=== PATIENT | female | born 1995 | race Caucasian/White ===

== ENCOUNTER 2018-03-19 06:00 | Inpatient (IN) | payer OTHER ==
[2018-03-19] MEDS ORDERED: METHYLERGONOVINE 0.2 MG/ML 1 ML AMP IM PRN (06:07)
[2018-03-19] MEDS ORDERED: LIDOCAINE 0.5% (PF) 5 MG/ML (50 ML SDV) SQ PRN (06:07)
[2018-03-19] MEDS ORDERED: OXYTOCIN 10 UNIT/ML 1 ML VIAL IM PRN (06:07)
[2018-03-19] MEDS ORDERED: CARBOPROST TROMETHAMINE 250 MCG/ML 1 ML AMP IM PRN (06:07)
[2018-03-19] MEDS ORDERED: TERBUTALINE 1 MG/ML VIAL SQ PRN (06:07)
[2018-03-19 06:12] VITALS: BMI 39.8
[2018-03-19] MEDS ORDERED: LACTATED RINGERS 1,000 ML IV SCH (06:15)
[2018-03-19] MEDS ORDERED: OXYTOCIN 20 UNITS/1000 ML NS 1,000 ML IV SCH ×2 (06:15→19:00)
[2018-03-19] MEDS: LACTATED RINGERS 1,000 ML IV SCH ×3 (06:23→20:43)
[2018-03-19 06:38] LABS: Basophils % (A) 0 %; Eosinophils # (A) 0.1 k/uL (0-0.7); Eosinophils % (A) 1 %; HCT 36.1 % (34.0-46.0); HGB 11.4 gm/dL (11.4-16.0); Lymphocytes % (A) 17 %; MCH 28.2 pg (25.0-35.0); MCHC 31.6 g/dL (31.0-37.0); MCV 89.3 fL (80.0-100.0); Mean Platelet Volume 8.1; Monocytes # (A) 0.5 k/uL (0-1.0); Monocytes % (A) 4 %; Neutrophils # (A) 9.1 k/uL (1.3-7.7); Neutrophils % (A) 76 %; Platelet Count 280 k/uL (150-450); RBC 4.04 m/uL (3.80-5.40); RDW 15.9 % (11.5-15.5); WBC 11.9 k/uL (3.8-10.6)
[2018-03-19] MEDS ORDERED: BUTORPHANOL 1 MG/ML 1 ML VIAL IV PRN (08:16)
--- NOTE | 2018-03-19 08:16 | P.HPOB ---
History of Present Illness H&P Date: 03/19/18 Chief Complaint: IUP @ 39 6/7 weeks This is a very pleasant 23-year-old 1 para 0 at 39-6/7 weeks with an estimated due date of 6 based on last menstrual period. Patient has been receiving routine care with myself since 10 weeks of gestation. Patient had an ultrasound yesterday for size greater than dates and was noted to have an EFW of 8 lbs. 10 oz. with an RASHEEDA of 20. Cervix was noted to be favorable 2-3 cm/50/-3 station soft and anterior patient elected induction. On blood work patient had a blood type of A+, rubella nonimmune we'll plan immunization post delivery, RPR is nonreactive, hepatitis B surface antigen is negative, HIV is negative, she did pass her 1 hour GDS she also elected to have genetic screening done in the first trimester which was negative , group beta strep is negative. Review of Systems Constitutional: Denies chills, Denies fatigue, Denies fever Ears, nose, mouth and throat: Denies headache Cardiovascular: Reports leg edema Respiratory: Denies cough, Denies dyspnea Gastrointestinal: Denies constipation, Denies diarrhea, Denies nausea, Denies vomiting Genitourinary: Reports Past Medical History Past Medical History: No Reported History History of Any Multi-Drug Resistant Organisms: None Reported Past Surgical History: No Surgical Hx Reported Past Anesthesia/Blood Transfusion Reactions: No Reported Reaction Past Psychological History: No Psychological Hx Reported Smoking Status: Never smoker Past Alcohol Use History: None Reported Past Drug Use History: None Reported - Past Family History Father Family Medical History: No Reported History Medications and Allergies Home Medications Medication Instructions Recorded Confirmed Type Pnv No.95/Ferrous Fum/Folic AC 1 tab PO ONCE 03/19/18 03/19/18 History [ Multivitamin Tablet] Allergies Allergy/AdvReac Type Severity Reaction Status Date / Time No Known Allergies Allergy Verified 03/19/18 06:06 Exam Osteopathic Statement: *. No significant issues noted on an osteopathic structural exam other than those noted in the History and Physical/Consult. Vital Signs Temp Pulse Resp BP Pulse Ox 03/19/18 06:09 95.8 F L 94 16 131/82 99 Intake and Output 03/18/18 03/19/18 03/19/18 22:59 06:59 14:59 Other: Weight 105.233 kg Targeted physical exam was performed on this date in general this is a well- nourished well-developed female in no acute distress, heart has regular rate and rhythm, lungs were noted to be clear to auscultation bilaterally, abdomen is noted to be gravid and appropriate for gestational age, extremities 1+ edema, heart tones are noted to be reactive and she is maría every 3 minutes. On cervical exam her cervix was noted to be 3/50/- 2 amniotomy was performed and clear fluid was obtained without difficulty Results Result Diagrams: 03/19/18 06:20 Abnormal Lab Results - Last 24 Hours (Table) 03/19/18 Range/Units 06:20 WBC 11.9 H (3.8-10.6) k/uL RDW 15.9 H (11.5-15.5) % Neutrophils # 9.1 H (1.3-7.7) k/uL Assessment and Plan (1) Term Current Visit: Yes Status: Acute Code(s): Z34.80 - ENCOUNTER FOR SUPRVSN OF NORMAL , UNSP TRIMESTER SNOMED Code(s): 59676728 Plan: Plan Pitocin induction of labor, Stadol as needed for pain control versus epidural as patient request. Anticipate spontaneous vaginal delivery later this afternoon.
[2018-03-19] MEDS ORDERED: PRENATAL VIT-IRON-FOLIC ACID 1 EACH CAP PO ONE (08:30)
[2018-03-19] MEDS ORDERED: ROPIVACAINE 5MG/ML 20ML VIAL ONE (13:34)
[2018-03-19] MEDS ORDERED: fentaNYL (PF) 50 MCG/ML 5 ML AMP ONE (13:34)
[2018-03-19] MEDS ORDERED: SODIUM CHLORIDE 0.9% 100 ML BAG ONE (13:34)
[2018-03-19] MEDS ORDERED: LIDOCAINE 2% INJ 20 MG/ML (20 ML MDV) ONE (18:15)
[2018-03-19] MEDS ORDERED: OXYTOCIN 10 UNIT/ML 1 ML VIAL ONE (18:15)
[2018-03-19] MEDS ORDERED: fentaNYL (PF) 50 MCG/ML 2 ML AMP ONE (18:15)
[2018-03-19] MEDS ORDERED: MORPHINE SULFATE (PF) 0.3 MG/0.3 ML SYR ONE (18:15)
[2018-03-19] MEDS ORDERED: ceFAZolin IN SWFI 2 GM/20 ML SYRINGE IVP ONE (18:17)
[2018-03-19] MEDS ORDERED: CITRIC ACID-SODIUM CITRATE 15 ML CUP PO ONE (18:17)
[2018-03-19] MEDS ORDERED: NALOXONE 0.4 MG/ML 1 ML VIAL IV PRN ×2 (18:34→18:56)
[2018-03-19] MEDS ORDERED: diphenhydrAMINE 50 MG/ML 1 ML VIAL IVP PRN ×3 (18:34→18:56)
[2018-03-19] MEDS ORDERED: ZOLPIDEM 5 MG TAB PO PRN (18:56)
[2018-03-19] MEDS ORDERED: diphenhydrAMINE 50 MG CAP PO PRN (18:56)
[2018-03-19] MEDS ORDERED: diphenhydrAMINE 25 MG CAP PO PRN (18:56)
[2018-03-19] MEDS ORDERED: METOCLOPRAMIDE 5 MG/ML 2 ML VIAL IVP PRN (18:56)
[2018-03-19] MEDS ORDERED: ACETAMINOPHEN TAB 325 MG TAB PO PRN (18:56)
[2018-03-19] MEDS ORDERED: HYDROcodone/APAP 7.5-325MG 1 EACH TAB PO PRN (18:56)
[2018-03-19] MEDS ORDERED: MEASLES-MUMPS-RUBELLA VACC/PF 12,500 UNIT/0.5 ML VIAL SQ ONE (18:56)
[2018-03-19] MEDS ORDERED: ONDANSETRON 4 MG/2 ML VIAL IVP PRN (18:56)
[2018-03-19] MEDS ORDERED: ACETAMINOPHEN IV (For NPO) 1,000 MG in EMPTY BAG 1 BAG IVPB ONE (18:56)
[2018-03-19] MEDS ORDERED: IBUPROFEN IV 800 MG in SODIUM CHLORIDE 0.9% 250 ML IV ONE (18:58)
--- NOTE | 2018-03-19 19:03 | P.OP ---
Date of Procedure: 03/19/18 Preoperative Diagnosis: IUP at 39 and 6/7 weeks, suspected LGA, arrest of first stage of labor Postoperative Diagnosis: Same plus meconium-stained fluid Procedure(s) Performed: Primary low transverse section Anesthesia: epidural Surgeon: Tierney Devine Front Desk Auxiliary #1: Earnestine Tineo Estimated Blood Loss (ml): 600 IV fluids (ml): 800 Urine output (ml): 150 Pathology: other (Placenta) Condition: stable Disposition: PACU Indications for Procedure: Patient was noted to be 6 cm for greater than 4 hours with no further descent of the head Operative Findings: Meconium-stained fluid, uterus, placenta, normal uterus tubes and ovaries were appreciated Description of Procedure: The patient was prepped and draped in the usual fashion after epidural anesthesia was found to be adequate. A Pfannenstiel incision was made and extended of the abdominal cavity without difficulty. The bladder peritoneum was elevated and incised and reflected distally. A 2 cm incision was made in the transverse plane of the lower uterine segment to enter the uterus at which time meconium stained fluid was noted. The incision was extended in both directions using the bandage scissors. The head was encountered within the field and delivered up and through the incision where the nose and mouth were thoroughly suctioned. Remainder of the infant was delivered onto the surgical field where the cord was doubly clamped, cut, and the was passed for resuscitative measures with weight 8-13 and Apgars of 8-9 at 1 and 5 minutes respectively. The placenta was delivered manually, intact, and was grossly normal with a grossly normal three-vessel cord. The uterus was exteriorized and the interior cavity of the uterus swept of any remaining placental and membranous fragments with a laparotomy sponge. The margins of the incision were grasped with [place] clamps and the incision closed in 2 layers. First layer was a running locking layer of 0 vicryl from margin to margin followed by a second layer of imbricating 0 vicryl from margin to margin. Any small points of bleeding were then made hemostatic with the Bovie. Once hemostasis was achieved, the posterior cul-de-sac was suctioned with a guard and the uterine and ovarian findings are as noted above. The uterus was replaced within the abdominal cavity and the gutters swept of any remaining blood fluid or clot. The incision was again reexamined and hemostasis was noted to be excellent. Any small point of bleeding were made hemostatic with the Bovie. Once hemostasis was achieved the parietal peritoneum was loosely reapproximated. The layer of muscles were examined and made hemostatic with the Bovie. Attention was then turned to the fascia which was closed with 2 running stitches of 0 Vicryl proceeding from the lateral margins to the midpoint. The subcutaneous tissues were irrigated, made hemostatic with the Bovie, and reapproximated with a running stitch of 3-0 vicryl. The skin was reapproximated with 4-0 vicryl. Estimated blood loss for the case was approximately 600 mL. All sponge instrument and needle counts are correct. There were no complications. The patient tolerated the procedure well and proceeded to the recovery room in stable condition. Both mother and infant are resting comfortably in recovery.
[2018-03-20] MEDS: SENNOSIDES-DOCUSATE SODIUM 1 EACH TAB PO SCH ×3 (01:56→22:32)
[2018-03-20] MEDS: LACTATED RINGERS 1,000 ML IV SCH ×4 (01:56→22:31)
--- NOTE | 2018-03-20 05:49 | P.PN ---
Progress Note - Text Progress Note Date: 03/20/18 23 yo F status post . Post-op day #1. Patient received intrathecal Duramorph through epidural catheter. Patient was seen today, sitting up in bed no complaints, pain VAS score 2/10, no headache, no itching, no nausea and vomiting. Assessment and plan: Doing well in general no complications from anesthesia
[2018-03-20 08:18] LABS: Basophils % (A) 0 %; Eosinophils # (A) 0.1 k/uL (0-0.7); Eosinophils % (A) 1 %; Hypochromasia Slight; Lymphocytes # (A) 1.5 k/uL (1.0-4.8); Lymphocytes % (A) 14 %; MCH 28.8 pg (25.0-35.0); MCV 90.1 fL (80.0-100.0); Mean Platelet Volume 8.2; Monocytes # (A) 0.5 k/uL (0-1.0); Monocytes % (A) 5 %; Neutrophils # (A) 8.3 k/uL (1.3-7.7); Neutrophils % (A) 79 %; Platelet Count 205 k/uL (150-450); RBC 3.33 m/uL (3.80-5.40); RDW 15.9 % (11.5-15.5); WBC 10.5 k/uL (3.8-10.6)
[2018-03-20 08:23] LABS: HGB 9.6 gm/dL (11.4-16.0)
--- NOTE | 2018-03-20 08:27 | P.PNOBGPC ---
Subjective - Subjective Principal diagnosis: POD 1 LTCS arrest of labor Interval history: Pt did well overnight, pain is controlled. she is bottlefeeding. she has had a spontaneous void since berg was d/c. she notes lochia to be minimal. she is tolerating clear liquids wihtout n/v. she denies concerns Patient reports: Reports appetite normal, Reports voiding normally, Reports pain well controlled, Reports ambulating normally : doing well, bottle feeding Objective - Vital Signs Latest vital signs: Vital Signs Temp Pulse Resp BP BP Pulse Ox 03/20/18 07:49 98.1 F 97 14 133/82 03/20/18 05:00 15 97 03/20/18 04:00 98 F 81 15 124/75 03/20/18 03:00 15 98 03/20/18 01:00 16 03/20/18 00:00 98.1 F 92 15 138/91 03/19/18 23:00 15 98 03/19/18 21:34 16 03/19/18 21:00 96.8 F L 96 18 119/69 97 03/19/18 20:30 97.4 F L 110 H 18 121/79 97 03/19/18 20:00 96 18 126/57 97 03/19/18 19:45 82 18 132/77 97 03/19/18 19:35 18 98 03/19/18 19:30 98.3 F 84 16 127/72 97 03/19/18 19:15 89 18 124/69 98 03/19/18 19:00 98.4 F 86 18 118/68 97 Intake and Output 03/19/18 03/20/18 03/20/18 22:59 06:59 14:59 Intake Total 400 600 Output Total 100 350 300 Balance 300 -350 300 Intake: Intake, IV Titration 400 Amount ACETAMINOPHEN IV (For NPO 400 ) 1,000 mg In Empty Bag 1 bag @ 400 mls/hr IVPB ONCE ONE Rx#:[id number] Lipid 600 Lactated Ringers 1,000 ml 600 @ 125 mls/hr IV .Q8H [facility] Rx#:[id number] Output: Urine 100 350 300 Uretheral ([place]) 350 Other: Voiding Method Indwelling Catheter # Voids 1 - Exam Extremities: Present: normal Abdomen: Present: normal appearance, soft Incision: Present: normal, dry, intact Uterus: Present: normal, firm - Labs Labs: Abnormal Lab Results - Last 24 Hours (Table) 03/20/18 Range/Units 08:02 RBC 3.33 L (3.80-5.40) m/uL Hgb 9.6 L D (11.4-16.0) gm/dL Hct 30.0 L (34.0-46.0) % RDW 15.9 H (11.5-15.5) % Neutrophils # 8.3 H (1.3-7.7) k/uL Assessment and Plan (1) Term Current Visit: Yes Status: Acute Code(s): Z34.80 - ENCOUNTER FOR SUPRVSN OF NORMAL , UNSP TRIMESTER SNOMED Code(s): 77988942 (2) LGA (large for gestational age) fetus Current Visit: Yes Status: Acute Code(s): VSD2747 - SNOMED Code(s): 578854879 (3) S/P section Current Visit: Yes Status: Acute Code(s): Z98.891 - HISTORY OF UTERINE SCAR FROM PREVIOUS SURGERY SNOMED Code(s): 259770348 Plan: will continue routine post operative care, and anticipate d/c home of she does well today
[2018-03-20] MEDS: IBUPROFEN 600 MG TAB PO PRN ×3 (10:58→23:35)
[2018-03-21] MEDS: HYDROcodone/APAP 5-325MG 1 EACH TAB PO PRN ×2 (02:39→10:37)
[2018-03-21] MEDS: LACTATED RINGERS 1,000 ML IV SCH (06:16)
[2018-03-21] MEDS: IBUPROFEN 600 MG TAB PO PRN (07:41)
[2018-03-21] MEDS: SENNOSIDES-DOCUSATE SODIUM 1 EACH TAB PO SCH (07:41)
[2018-03-21 08:55] VITALS: BP 117/71; PULSE 92; RESP 18; TEMP 97.8
--- NOTE | 2018-03-21 09:22 | P.DS ---
Providers Date of admission: 03/19/18 06:04 Expected date of discharge: 03/21/18 Attending physician: Tierney Devine Primary care physician: Stated None - Discharge Diagnosis(es) (1) Term Current Visit: Yes Status: Acute (2) LGA (large for gestational age) fetus Current Visit: Yes Status: Acute (3) S/P section Current Visit: Yes Status: Acute Hospital Course: This is a 23-year-old 1 para 0 at 39 6 when she presented to labor and delivery for induction of labor for suspected LGA. Patient was admitted to labor and delivery and was noted to be 3 cm dilated she was maría regularly is Pitocin has been started 2 hours prior to me evaluating the patient. Patient underwent amniotomy and clear fluid was obtained. Patient progressed throughout labor and eventually became uncomfortable requesting an epidural. Anesthesia came in place at epidural without difficulty and she was comfortable afterwards. Just after the epidural around 12:30 1:00 patient was noted to be 5-6 cm patient stalled at that dilation and around 6:00 was checked and felt to be the same dilation. Patient was then counseled as to primary low transverse section secondary to arrest of first stage of labor. Patient agreed and was performed. For further details on the C- section please see the operative report. Patient delivered a viable female infant at 1831, weight of 8 lbs. 13 oz. and Apgars of 8 and 9 at one and 5 minutes respectively. Patient's postoperative course has been uneventful. She is ambulating and voiding without difficulty. She is tolerating a regular diet without nausea or vomiting. She states her pain is controlled with oral medications.. She is bottle feeding at this time. She is tired but states she is ready to go home on this postop day #2. Patient Condition at Discharge: Good Plan - Discharge Summary New Discharge Prescriptions: No Action Pnv No.95/Ferrous Fum/Folic AC [ Multivitamin Tablet] 1 tab PO ONCE Discharge Medication List Pnv No.95/Ferrous Fum/Folic AC [ Multivitamin Tablet] 1 tab PO ONCE 08/30 [History] Follow up Appointment(s)/Referral(s): Tierney Devine DO [Doctor of Osteopathic Medicine] - 2 Weeks Patient Instructions/Handouts: (DC), (GEN)
== END 2018-03-21 14:30 | disposition home or self-care (01) | DRG 788 ==
LOC: 4FBP 06:04
PROVIDERS: ADMIT Obstetrics & Gynecology Obstetrics; ATTEND Obstetrics & Gynecology Obstetrics
PROC: 00HU33Z Insertion of Infusion Device into Spinal Canal, Percutaneous Approach (ICD-10-PCS; 2018-03-19)
PROC: 3E0R3BZ Introduction of Anesthetic Agent into Spinal Canal, Percutaneous Approach (ICD-10-PCS; 2018-03-19)
PROC: 3E0134Z Introduction of Serum, Toxoid and Vaccine into Subcutaneous Tissue, Percutaneous Approach (ICD-10-PCS; 2018-03-19)
PROC: 10D00Z1 Extraction of Products of Conception, Low, Open Approach (ICD-10-PCS; principal; 2018-03-19 06:00)
DX: O36.63X0 Maternal care for excessive fetal growth, third trimester, not applicable or unspecified (principal); O77.0 Labor and delivery complicated by meconium in amniotic fluid; Z3A.39 39 weeks gestation of pregnancy; Z37.0 Single live birth; Z23 Encounter for immunization; Z79.899 Other long term (current) drug therapy
CPT/HCPCS: 85025; 86850; 86900; 86901; 88307; 90471; 90707

== ENCOUNTER 2019-11-26 10:10 | Inpatient (IN) | payer OTHER ==
[2019-11-25 14:57] VITALS: BMI 43.7
[~2019-11-26 10:10] MED LIST: LACTATED RINGERS 1,000 ML IV SCH; NALOXONE 0.4 MG/ML 1 ML VIAL IV PRN
[2019-11-26] MEDS ORDERED: CITRIC ACID-SODIUM CITRATE 15 ML CUP PO ONE (10:27)
[2019-11-26] MEDS ORDERED: LACTATED RINGERS 1,000 ML IV ONE (10:27)
[2019-11-26 10:50] LABS: Basophils % (A) 0 %; Eosinophils # (A) 0.1 k/uL (0-0.7); Eosinophils % (A) 1 %; HCT 35.4 % (34.0-46.0); HGB 11.2 gm/dL (11.4-16.0); Lymphocytes # (A) 1.6 k/uL (1.0-4.8); Lymphocytes % (A) 18 %; MCH 27.6 pg (25.0-35.0); MCHC 31.7 g/dL (31.0-37.0); MCV 87.1 fL (80.0-100.0); Mean Platelet Volume 9.2; Monocytes # (A) 0.3 k/uL (0-1.0); Monocytes % (A) 4 %; Neutrophils # (A) 6.6 k/uL (1.3-7.7); Neutrophils % (A) 75 %; Platelet Count 242 k/uL (150-450); RBC 4.07 m/uL (3.80-5.40); RDW 15.3 % (11.5-15.5); WBC 8.8 k/uL (3.8-10.6)
[2019-11-26] MEDS ORDERED: NALBUPHINE 10 MG/ML (1 ML AMP) ONE (12:05)
[2019-11-26] MEDS ORDERED: MORPHINE SULFATE (PF) 0.3 MG/0.3 ML SYR ONE (12:05)
[2019-11-26] MEDS ORDERED: ePHEDrine SULFATE/0.9% NACL/PF 50 MG/5 ML SYRINGE IV ONE (12:05)
[2019-11-26] MEDS ORDERED: PHENYLEPHRINE-0.9% NACL SYG 1 MG/10 ML SYRINGE ONE (12:05)
[2019-11-26] MEDS ORDERED: ONDANSETRON 4 MG/2 ML VIAL ONE (12:05)
[2019-11-26] MEDS ORDERED: OXYTOCIN 10 UNIT/ML 1 ML VIAL ONE (12:05)
[2019-11-26] MEDS ORDERED: NALOXONE 0.4 MG/ML 1 ML VIAL IV PRN (12:55)
[2019-11-26] MEDS ORDERED: diphenhydrAMINE 50 MG/ML 1 ML VIAL IVP PRN ×2 (12:55)
[2019-11-26] MEDS ORDERED: ACETAMINOPHEN TAB 325 MG TAB PO PRN (12:55)
[2019-11-26] MEDS ORDERED: ZOLPIDEM 5 MG TAB PO PRN (12:55)
[2019-11-26] MEDS ORDERED: diphenhydrAMINE 25 MG CAP PO PRN (12:55)
[2019-11-26] MEDS ORDERED: METOCLOPRAMIDE 5 MG/ML 2 ML VIAL IVP PRN (12:55)
[2019-11-26] MEDS ORDERED: ONDANSETRON 4 MG/2 ML VIAL IVP PRN (12:55)
[2019-11-26] MEDS ORDERED: ACETAMINOPHEN IV (For NPO) 1,000 MG in EMPTY BAG 1 BAG IVPB ONE (12:55)
[2019-11-26] MEDS ORDERED: SIMETHICONE 80 MG CHEWABLE PO PRN (12:55)
[2019-11-26] MEDS ORDERED: diphenhydrAMINE 50 MG CAP PO PRN (12:55)
[2019-11-26] MEDS ORDERED: OXYTOCIN 20 UNITS/1000 ML NS 1,000 ML IV SCH (13:00)
[2019-11-26] MEDS ORDERED: PRENATAL VIT-IRON-FOLIC ACID 1 EACH CAP PO ONE (13:00)
--- NOTE | 2019-11-26 13:00 | P.HPOB ---
History of Present Illness H&P Date: 11/26/19 Chief Complaint: IUP at 39 and 0/sevenths weeks, history of 1 desires repeat This is a 24-year-old 2 para 1001 at 39-0/7 weeks that presents to labor and delivery for planned repeat . Patient and a prior secondary to arrest of first stage of labor. Patient has been receiving routine care which is been essentially uncomplicated. Ultrasound was completed approximately 2 weeks ago revealing a large for gestational age at 8 lbs. 9 oz. Patient is known to have a blood type of A+, [place] rubella status is immune, hep Maye surface antigen negative, GBS negative, HIV negative, RPR nonreactive. Patient did note good movement upon arrival today she denied contractions or loss of fluid. Review of Systems Constitutional: Denies chills, Denies fatigue, Denies fever Ears, nose, mouth and throat: Denies headache Cardiovascular: Reports leg edema Respiratory: Denies dyspnea Gastrointestinal: Denies diarrhea, Denies nausea, Denies vomiting Genitourinary: Reports Past Medical History Past Medical History: No Reported History History of Any Multi-Drug Resistant Organisms: None Reported Past Surgical History: Section Past Anesthesia/Blood Transfusion Reactions: No Reported Reaction Past Psychological History: No Psychological Hx Reported Smoking Status: Never smoker Past Alcohol Use History: None Reported Past Drug Use History: None Reported - Past Family History Father Family Medical History: No Reported History Medications and Allergies Home Medications Medication Instructions Recorded Confirmed Type Pnv No.95/Ferrous Fum/Folic AC 1 tab PO ONCE 03/19/18 11/25/19 History [ Multivitamin Tablet] Allergies Allergy/AdvReac Type Severity Reaction Status Date / Time No Known Allergies Allergy Verified 11/25/19 14:44 Exam Osteopathic Statement: *. No significant issues noted on an osteopathic structural exam other than those noted in the History and Physical/Consult. Vital Signs Temp Pulse Resp BP Pulse Ox 11/26/19 12:00 16 11/26/19 10:23 97.2 F L 93 16 120/73 96 Intake and Output 11/25/19 11/26/19 11/26/19 22:59 06:59 14:59 Other: Weight 115.666 kg Targeted physical exam was performed in this date and applied behavior science specialist a well- nourished well-developed female in no distress, breathing is noted to be nonlabored, heart has a regular rate and rhythm, abdomen is gravid and appropriate for gestational age, heart tones are be category 1 and she is not maría, cervical exam is deferred as she is a planned . Results Result Diagrams: 11/26/19 10:30 Abnormal Lab Results - Last 24 Hours (Table) 11/26/19 Range/Units 10:30 Hgb 11.2 L (11.4-16.0) gm/dL Assessment and Plan (1) H/O section Current Visit: Yes Status: Acute Code(s): Z98.891 - HISTORY OF UTERINE SCAR FROM PREVIOUS SURGERY SNOMED Code(s): 569501396 (2) LGA (large for gestational age) fetus Current Visit: No Status: Acute Code(s): YMA7053 - SNOMED Code(s): 545322492 (3) Term Current Visit: No Status: Acute Code(s): Z34.80 - ENCOUNTER FOR SUPRVSN OF NORMAL , UNSP TRIMESTER SNOMED Code(s): 25665418 Plan: Patient is admitted to labor and delivery for planned repeat section. Patient is counseled on risks of repeat including but not limited to infection, bleeding, damage to bladder, bowel, ureteric, injury. Patient states understanding and wishes to proceed.
--- NOTE | 2019-11-26 13:06 | P.OP ---
Date of Procedure: 11/26/19 Preoperative Diagnosis: IUP at 39 0/sevenths weeks, history of 1, desires repeat Postoperative Diagnosis: Same Procedure(s) Performed: Elective repeat section Anesthesia: spinal Surgeon: Tierney Devine Dealership General Manager #1: Juan Morgan Estimated Blood Loss (ml): 460 IV fluids (ml): 1,000 Urine output (ml): 300 Pathology: none sent Condition: stable Disposition: observation Indications for Procedure: This pleasant 24-year-old 2 para 1001 has a history of a primary C- section secondary to arrest of first stage of labor, patient elected repeat C- section secondary to suspected large for gestational age infant. Operative Findings: Normal uterus tubes and ovaries were appreciated. A thin lower uterine segment was noted, liveborn infant male delivered at 1229, weight of 9 lbs. 5 oz. via vacuum assist, Description of Procedure: Patient was taken back to the operating suite where spinal anesthesia was found be adequate by the anesthesia department. She was then prepped and draped in normal sterile fashion in the dorsal supine position. A Pfannenstiel skin incision was made the scalpel and carried through to the underlying layer of fascia. A significant amount of citric's was noted within the subcutaneous tissue. The fascia was then incised in the midline and the incision was extended laterally. The superior aspect of the fascial incision was then grasped with [place] clamps, elevated and underlying rectus muscles dissected off sharply. Attention was then turned to the inferior aspect of the fascial incision which was grasped with [place] clamps, elevated and underlying rectus muscles dissected off sharply once again. The rectus muscles were in the midline the peritoneum was identified and entered. This incision was then extended superiorly and inferiorly with good visualization the bladder. The bladder blade was then inserted into the pelvis the vesicouterine peritoneum was identified and the bladder flap was then created. The bladder blade was then reinserted into the pelvis. Hysterotomy incision was made with the scalpel amniotomy was performed and clear fluid was obtained. head was encountered and after an attempt to deliver the a vacuum was placed infant was delivered atraumatically without a pop-off. Vacuum was deactivated, the umbo cord was doubly clamped and cut and was handed off to waiting RN. The placenta was then delivered manually and the uterus was cleared of all clots and debris. The uterine incision was then closed with 0 Vicryl 2. Small amount of bleeding was noted in the midportion of the uterine incision therefore a [id number] suture was used to obtain hemostasis. The uterus then returned to the abdomen. The gutters were cleared of all clots and debris. The hysterotomy incision was inspected and hemostasis was appreciated. The peritoneum was then loosely reapproximated. The fascia was then closed with 0 Vicryl in a running suture from one lateral edge the other. The subcutaneous tissue was irrigated and found to be hemostatic. It was closed with 3-0 Vicryl. The skin was then closed with 4-0 Vicryl in a subsequent fashion. Steri-Strips and sterile dressings were applied as needed. All counts were noted to be correct 2 to the end of the procedure. Patient and tolerated delivery well.
[2019-11-26] MEDS ORDERED: IBUPROFEN IV 800 MG in SODIUM CHLORIDE 0.9% 250 ML IV ONE (13:30)
[2019-11-26] MEDS: LACTATED RINGERS 1,000 ML IV SCH ×3 (19:35→21:24)
[2019-11-26] MEDS: SENNOSIDES-DOCUSATE SODIUM 1 EACH TAB PO SCH (21:16)
[2019-11-27] MEDS: IBUPROFEN 600 MG TAB PO PRN ×3 (04:16→17:32)
[2019-11-27 06:19] LABS: Basophils % (A) 0 %; Eosinophils # (A) 0.1 k/uL (0-0.7); Eosinophils % (A) 1 %; HCT 29.6 % (34.0-46.0); Hypochromasia Slight; Lymphocytes # (A) 1.9 k/uL (1.0-4.8); Lymphocytes % (A) 21 %; MCHC 31.9 g/dL (31.0-37.0); MCV 87.8 fL (80.0-100.0); Mean Platelet Volume 9.1; Monocytes # (A) 0.5 k/uL (0-1.0); Monocytes % (A) 6 %; Neutrophils # (A) 6.4 k/uL (1.3-7.7); Neutrophils % (A) 70 %; Platelet Count 221 k/uL (150-450); RBC 3.38 m/uL (3.80-5.40); RDW 15.5 % (11.5-15.5); WBC 9.2 k/uL (3.8-10.6)
--- NOTE | 2019-11-27 06:41 | P.PN ---
Progress Note - Text Progress Note Date: 11/27/19 Postoperative day 1 status post section under spinal anesthesia, and i ntrathecal morphine given for postoperative analgesia, patient doing well, there is no anesthesia related complications, Patient had no headache, vital signs stable , Assessment and plan= postop day 1 status post , doing well there is no anesthesia related complication.
[2019-11-27 06:43] LABS: HGB 9.5 gm/dL (11.4-16.0)
[2019-11-27] MEDS: SENNOSIDES-DOCUSATE SODIUM 1 EACH TAB PO SCH ×2 (08:21→19:43)
--- NOTE | 2019-11-27 09:28 | P.PNOBGPC ---
Subjective - Subjective Principal diagnosis: Postop day 1, repeat section Interval history: Patient did well overnight. She is ambulating and voiding without difficulty. She states she is tolerating a regular diet without nausea or vomiting, her pain is well-controlled. Her lochia is minimal. She denies concerns. Patient reports: Reports appetite normal, Reports voiding normally, Reports pain well controlled, Reports ambulating normally Orient: doing well Objective - Vital Signs Latest vital signs: Vital Signs Temp Pulse Resp BP Pulse Ox 11/27/19 08:00 98.2 F 86 16 106/67 98 11/27/19 06:00 18 98 11/27/19 04:00 98.5 F 83 18 110/62 98 11/27/19 02:00 18 97 11/27/19 00:00 98.0 F 80 18 105/66 98 11/26/19 22:00 16 97 11/26/19 20:00 98.2 F 80 16 121/74 98 11/26/19 18:00 16 99 11/26/19 15:29 16 11/26/19 15:00 86 16 112/63 99 11/26/19 14:30 85 16 116/58 11/26/19 14:00 86 16 119/65 100 11/26/19 13:45 81 16 122/61 99 11/26/19 13:30 88 16 113/63 99 11/26/19 13:15 100 16 125/60 99 11/26/19 13:00 96.7 F L 86 16 122/58 100 11/26/19 12:00 16 11/26/19 10:23 97.2 F L 93 16 120/73 96 Intake and Output 11/26/19 11/27/19 11/27/19 22:59 06:59 14:59 Output Total 1450 1000 Balance -1450 -1000 Output: Urine 1450 1000 Uretheral ([place]) 1300 Other: # Voids 1 1 - Exam Extremities: Present: normal Abdomen: Present: normal appearance, soft Incision: Present: normal, dry, intact Uterus: Present: normal, firm - Labs Labs: Abnormal Lab Results - Last 24 Hours (Table) 11/26/19 11/27/19 Range/Units 10:30 05:53 RBC 3.38 L (3.80-5.40) m/uL Hgb 11.2 L 9.5 L D (11.4-16.0) gm/dL Hct 29.6 L (34.0-46.0) % Assessment and Plan (1) H/O section Current Visit: Yes Status: Acute Code(s): Z98.891 - HISTORY OF UTERINE SCAR FROM PREVIOUS SURGERY SNOMED Code(s): 386009272 (2) LGA (large for gestational age) fetus Current Visit: No Status: Acute Code(s): ADH5108 - SNOMED Code(s): 470156933 (3) Term Current Visit: No Status: Acute Code(s): Z34.80 - ENCOUNTER FOR SUPRVSN OF NORMAL , UNSP TRIMESTER SNOMED Code(s): 39566702 (4) S/P section Current Visit: No Status: Acute Code(s): Z98.891 - HISTORY OF UTERINE SCAR FROM PREVIOUS SURGERY SNOMED Code(s): 977367721 Plan: Patient is doing well postoperatively, will continue routine postoperative care and anticipate discharge home tomorrow.
[2019-11-27] MEDS: HYDROcodone/APAP 5-325MG 1 EACH TAB PO PRN (19:42)
[2019-11-27] MEDS: LACTATED RINGERS 1,000 ML IV SCH ×2 (21:23→21:24)
[2019-11-28] MEDS: HYDROcodone/APAP 5-325MG 1 EACH TAB PO PRN ×2 (00:34→04:51)
[2019-11-28] MEDS: IBUPROFEN 600 MG TAB PO PRN (07:34)
[2019-11-28 07:41] VITALS: BP 104/70; PULSE 71; RESP 14; TEMP 97.8
--- NOTE | 2019-11-28 09:45 | P.DS ---
Providers Date of admission: 11/26/19 10:10 Expected date of discharge: 11/28/19 Attending physician: Tierney Devine Primary care physician: Stated None - Discharge Diagnosis(es) (1) H/O section Current Visit: Yes Status: Acute (2) LGA (large for gestational age) fetus Current Visit: No Status: Acute (3) Term Current Visit: No Status: Acute (4) S/P section Current Visit: No Status: Acute Hospital Course: This is a pleasant 24-year-old 2 para 1001 with a history of primary C- section secondary to arrest of first stage and suspected LGA. Patient elected repeat for this . Patient was admitted to labor and delivery and repeat was performed without difficulty. For further details on the please see the operative report. She delivered a liveborn male infant at 1229, weight of 9 lbs. 5 oz. via vacuum assist. Patient's postoperative course has been uneventful. On this postoperative day #1 she is ambulating and voiding without difficulty. She is tolerating a regular diet without nausea or vomiting. She states her pain is well-controlled and she does wish discharge home. Patient Condition at Discharge: Good Plan - Discharge Summary Discharge Rx Participant: Yes New Discharge Prescriptions: No Action Pnv No.95/Ferrous Fum/Folic AC [ Multivitamin Tablet] 1 tab PO ONCE Discharge Medication List Pnv No.95/Ferrous Fum/Folic AC [ Multivitamin Tablet] 1 tab PO ONCE 03/19/18 [History] Follow up Appointment(s)/Referral(s): Tierney Devine DO [Doctor of Osteopathic Medicine] - 2 Weeks Patient Instructions/Handouts: (DC), (GEN)
== END 2019-11-28 11:10 | disposition home or self-care (01) | DRG 788 ==
LOC: 4FBP 10:10
PROVIDERS: ADMIT Obstetrics & Gynecology Obstetrics; ATTEND Obstetrics & Gynecology Obstetrics
PROC: 10D00Z1 Extraction of Products of Conception, Low, Open Approach (ICD-10-PCS; principal; 2019-11-26 12:00)
DX: O34.211 Maternal care for low transverse scar from previous cesarean delivery (principal); O36.63X0 Maternal care for excessive fetal growth, third trimester, not applicable or unspecified; Z37.0 Single live birth; Z3A.39 39 weeks gestation of pregnancy
CPT/HCPCS: 85025; 86850; 86900; 86901

== ENCOUNTER 2021-02-19 15:33 | Emergency (ER) | payer OTHER ==
--- NOTE | 2021-02-19 16:46 | XR ---
EXAMINATION TYPE: XR chest 2V DATE OF EXAM: 02/19/2021 COMPARISON: NONE HISTORY: Cough and congestion TECHNIQUE: 2 views FINDINGS: Heart and mediastinum are normal. Lungs are clear. Diaphragm is normal. Bony thorax is inta ct. IMPRESSION: Normal chest.
--- NOTE | 2021-02-19 17:10 | ED ---
URI HPI - General Chief Complaint: Upper Respiratory Infection Stated Complaint: Cough Time Seen by Provider: 02/19/21 15:45 Source: patient, RN notes reviewed Mode of arrival: ambulatory Limitations: no limitations - History of Present Illness Initial Comments: Patient is a 25-year-old female that presents to the emergency department complaining of upper respiratory tract symptoms for the past 4 days. She noted that she's been taking sayr-ohk-[id number] cough and cold medicine. 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 She denied other symptoms. She was well- appearing. She denied chest pain first breath headache nausea vomiting diarrhea constipation fatigue chills. - Related Data Home Medications Medication Instructions Recorded Confirmed Pnv No.95/Ferrous Fum/Folic AC 1 tab PO ONCE 03/19/18 11/25/19 [ Multivitamin Tablet] Allergies Allergy/AdvReac Type Severity Reaction Status Date / Time No Known Allergies Allergy Verified 02/19/21 15:43 Review of Systems ROS Statement: Those systems with pertinent positive or pertinent negative responses have been documented in the HPI. ROS Other: All systems not noted in ROS Statement are negative. Past Medical History Past Medical History: No Reported History History of Any Multi-Drug Resistant Organisms: None Reported Past Surgical History: Section Past Anesthesia/Blood Transfusion Reactions: No Reported Reaction Past Psychological History: No Psychological Hx Reported Smoking Status: Never smoker Past Alcohol Use History: None Reported Past Drug Use History: None Reported - Past Family History Father Family Medical History: No Reported History General Exam Limitations: no limitations General appearance: alert, in no apparent distress Head exam: Present: atraumatic, normocephalic, normal inspection Eye exam: Present: normal appearance, PERRL, EOMI. Absent: scleral icterus, conjunctival injection, periorbital swelling ENT exam: Present: normal exam, mucous membranes moist Neck exam: Present: normal inspection Respiratory exam: Present: normal lung sounds bilaterally. Absent: respiratory distress, wheezes, rales, rhonchi, stridor Cardiovascular Exam: Present: regular rate, normal rhythm, normal heart sounds. Absent: systolic murmur, diastolic murmur, rubs, gallop, clicks Extremities exam: Present: normal inspection, full ROM, normal capillary refill. Absent: tenderness, pedal edema, joint swelling, calf tenderness Neurological exam: Present: alert, oriented X3 Psychiatric exam: Present: normal affect, normal mood Skin exam: Present: warm, dry, intact, normal color. Absent: rash Course Vital Signs 02/19/21 15:40 Temperature 98.5 F Pulse Rate 88 Respiratory 22 Rate Blood Pressure 138/76 O2 Sat by Pulse 98 Oximetry Medical Decision Making - Medical Decision Making 25-year-old female with upper respiratory tract symptoms for the past 5 days, works in daycare. Cepheid 4 Plex, chest x-ray ordered. Cepheid 4 Plex negative. Chest x-ray negative for any acute card up on her process. Patient most likely has an acute upper respiratory infection caused by a virus other than Covid flu or RSV. Case discussed with Dr. Browning, patient discharge home. - Lab Data Lab Results 02/19/21 Range/Units 16:07 Influenza Type A (PCR) Not Detected (Not Detectd) Influenza Type B (PCR) Not Detected (Not Detectd) RSV (PCR) Not Detected (Not Detectd) SARS-CoV-2 (PCR) Not Detected (Not Detectd) - Radiology Data Radiology results: report reviewed, image reviewed Chest x-ray: Normal chest. Disposition Clinical Impression: Acute upper respiratory infection Disposition: HOME SELF-CARE Condition: Stable Instructions (If sedation given, give patient instructions): Upper Respiratory Infection (ED) Additional Instructions: Please return to the Emergency Department if symptoms worsen or any other concerns. Follow-up with primary care 1-2 days. Continue taking ciqh-jxg-jpmfhpy cough medicine as needed. Is patient prescribed a controlled substance at d/c from ED?: No Referrals: Elvira Laws MD [Primary Care Provider] - 1-2 days Time of Disposition: 17:10
[2021-02-19 17:58] VITALS: BP 136/72; PULSE 82; RESP 18; TEMP 98.3
== END 2021-02-19 17:39 | disposition home or self-care (01) ==
LOC: EC 15:33
DX: J06.9 Acute upper respiratory infection, unspecified (principal); Z20.822 Contact with and (suspected) exposure to COVID-19
CPT/HCPCS: 71046; 87636; 99284

== ENCOUNTER → 2021-09-06 | Outpatient (CLI) | payer OTHER ==
--- NOTE | 2021-09-07 14:42 | SFUN ---
SLEEP CENTER FOLLOW UP NOTE DATE OF SERVICE: 09/06/2021 This 26-year-old lady has been followed in Sleep Center and comes in to discuss results of her sleep study and following plan. I discussed results of sleep study with the patient in detail. No significant abnormalities of respiration. No significant periodic limb movements during the sleep study. Multiple sleep latency test confirmed pathological sleepiness although without sleep-onset REM periods. At present patient is on treatment with Adderall 20 mg twice a day, but with this regimen she still continues to feel sleepiness. [place] Sleepiness Scale is in the range of 16. MEDICATIONS: Zoloft 100 mg once a day, Adderall 20 mg twice a day, Zyrtec once a day. PHYSICAL EXAMINATION: GENERAL: Pleasant patient in no distress. VITAL SIGNS: BP 120/80, HR 89, RR 16, height 5 feet 4-3/4 inches, weight 227.6, temperature 97.4, oxygen saturation at room air 95%. HEENT: PERRLA, EOMI, evaluation of oropharynx showed tongue protrudes midline. Low position of soft palate; Mallampati III. NECK: Supple, no JVD. Thyroid is not palpable. LUNGS: Clear to percussion and to auscultation. Good air exchange. No wheezing or rhonchi. HEART: S1, S2 regular. No murmurs, gallops, or rubs. ABDOMEN: Slightly obese. EXTREMITIES: No clubbing or cyanosis. CAPTAIN/AIRLINE PILOT: Awake, alert, and oriented X3. Cranial nerves 2 to 7 intact. There is no fasciculation or atrophy. noted. No focal deficits observed. IMPRESSION: 1. Multiple sleep latency test confirmed pathological sleepiness which is in extremely short range, 2.2 minutes. No sleep-onset REM periods have been documented, but most probably it is still narcolepsy because sleep latency is extremely short. 2. No significant periodic limb movements were documented during the sleep the sleep study. No periodic limb movements have been documented. 3. Obesity. 4. Status post COVID-19 in 2020. 5. History of bronchitis. 6. History of headaches. 7. History of depression and anxiety. 8. Allergies. 9. Status post x2. PLAN: 1. Dose of Adderall will be increased to 20 mg 3 times a day. 2. Sleep hygiene with regular time in bed for at least 7-1/2 to 8 hours. 3. Daytime naps permitted. 4. No driving if feeling any sleepiness. Patient is aware of civil and criminal liability for unsafe driving. Thank you very much for allowing me to participate in the management of your patient. Sincerely, Joselito Leahy MD, PhD, FAASM Diplomat of [employer] Sleep Medicine Board of [employer] [facility] [place] MMODL / IJN: [id number] /
== END ==
LOC: SLEEP 16:15
PROVIDERS: ATTEND Internal Medicine
DX: R40.0 Somnolence (principal); E66.9 Obesity, unspecified; Z86.16 Personal history of COVID-19; Z87.09 Personal history of other diseases of the respiratory system; F32.A Depression, unspecified; F41.9 Anxiety disorder, unspecified; T78.40XA Allergy, unspecified, initial encounter; Z87.59 Personal history of other complications of pregnancy, childbirth and the puerperium; Z86.69 Personal history of other diseases of the nervous system and sense organs

== ENCOUNTER 2023-11-20 08:32 | Inpatient (IN) | payer OTHER ==
[2023-11-20] MEDS ORDERED: IBUPROFEN 600 MG TAB PO ONE (09:00)
[2023-11-20] MEDS ORDERED: SENNOSIDES-DOCUSATE SODIUM 1 EACH TAB PO ONE (09:00)
[2023-11-20] MEDS ORDERED: ACETAMINOPHEN IV (For NPO) 1,000 MG/100 ML VIAL ONE (09:00)
[2023-11-20] MEDS ORDERED: ACETAMINOPHEN TAB 500 MG TAB ONE (09:00)
[2023-11-20] MEDS ORDERED: CITRIC ACID-SODIUM CITRATE 15 ML CUP ONE (09:00)
[2023-11-20] MEDS ORDERED: LACTATED RINGERS 1,000 ML BAG ONE (09:00)
[2023-11-20] MEDS ORDERED: ceFAZolin 10 GM VIAL IVPB ONE (09:00)
[2023-11-20] MEDS ORDERED: SODIUM CHLORIDE 0.9% 50 ML BAG ONE (09:00)
[2023-11-20] MEDS ORDERED: OXYTOCIN 30 UNITS/500 ML NS BAG IV ONE (12:14)
[2023-11-20] MEDS ORDERED: MORPHINE SULFATE (PF) 0.3 MG/0.3 ML SYR ONE (12:14)
[2023-11-20] MEDS ORDERED: PHENYLEPHRINE 10 MG/ML VIAL ONE (12:14)
[2023-11-20] MEDS ORDERED: KETOROLAC 15 MG/ML 1 ML VIAL ONE (12:14)
[2023-11-21] MEDS ORDERED: ACETAMINOPHEN TAB 500 MG TAB ONE (03:00)
[2023-11-21] MEDS ORDERED: IBUPROFEN 600 MG TAB PO ONE (03:00)
[2023-11-22] MEDS ORDERED: IBUPROFEN 600 MG TAB PO ONE (02:00)
[2023-11-22] MEDS ORDERED: ACETAMINOPHEN TAB 500 MG TAB ONE (02:00)
--- NOTE | 2024-02-12 13:26 | P.OP ---
Date of Procedure: 11/17/23 Preoperative Diagnosis: IUP at 39 and 0, history of x 2, spontaneous rupture of membranes Postoperative Diagnosis: Same Procedure(s) Performed: Repeat section Anesthesia: spinal Surgeon: Tierney Devine Estimated Blood Loss (ml): 294 IV fluids (ml): 800 Urine output (ml): 50 (Clear yellow) Pathology: none sent Condition: stable Disposition: observation Indications for Procedure: History of section x 2, desires repeat Operative Findings: Viable male infant, weight of 8 pounds 4 ounces, Apgars of 8 and 9 at 1 and 5 minutes respectively. Description of Procedure: The patient was prepped and draped in the usual fashion after spinal anesthesia was administered by the anesthesia department. A Pfannenstiel incision was made and extended of the abdominal cavity without difficulty. The bladder peritoneum was elevated and incised and reflected distally. A 2 cm incision was made in the transverse plane of the lower uterine segment to enter the uterus at which time clear fluid was noted. The incision was extended in both directions using the bandage scissors. The head was encountered within the field and delivered up and through the incision where the nose and mouth were thoroughly suctioned. Remainder of the infant was delivered onto the surgical field where the cord was doubly clamped, cut, and the infant was passed for resuscitative measures with weight and Apgars as noted above. A segment of cord was then doubly clamped, cut, and set aside should cord gases become necessary. The placenta was delivered manually, intact, and was grossly normal with a grossly normal three-vessel cord. The uterus was exteriorized and the interior cavity of the uterus swept of any remaining placental and membranous fragments with a laparotomy sponge. The margins of the incision were grasped with Storm clamps and the incision closed in 2 layers. First layer was a running locking layer of 0 Vicryl from margin to margin followed by a second layer of imbricating 0 Vicryl from margin to margin. Any small points of bleeding were then made hemostatic with the Bovie. Once hemostasis was achieved, the posterior cul-de-sac was suctioned with a guard and the uterine and ovarian findings are as noted above. The uterus was replaced within the abdominal cavity and the gutters swept of any remaining blood fluid or clot. The incision was again reexamined and hemostasis was noted to be excellent. Any small point of bleeding were made hemostatic with the Bovie. Once hemostasis was achieved the parietal peritoneum was loosely reapproximated. The layer of muscles were examined and made hemostatic with the Bovie. Attention was then turned to the fascia which was closed with 2 running stitches of 0 Vicryl proceeding from the lateral margins to the midpoint. The subcutaneous tissues were irrigated, made hemostatic with the Bovie, and reapproximated with a running stitch of 30 Vicryl. The skin was reapproximated with 4-0 Vicryl. Estimated blood loss for the case was approximately 294 mL. All sponge instrument and needle counts are correct. There were no complications. The patient tolerated the procedure well and proceeded to the recovery room in stable condition. Both mother and infant are resting comfortably in recovery.
== END 2023-11-22 12:30 | disposition home or self-care (01) | DRG 540 ==
LOC: 4FBP 08:32 → UNDODISIN 11-22 12:30
PROVIDERS: ADMIT Obstetrics & Gynecology Obstetrics; ATTEND Obstetrics & Gynecology Obstetrics
PROC: 10D00Z1 Extraction of Products of Conception, Low, Open Approach (ICD-10-PCS; principal; 2023-11-20 12:00)
DX: O34.211 Maternal care for low transverse scar from previous cesarean delivery (principal); Z3A.39 39 weeks gestation of pregnancy; Z37.0 Single live birth; K21.9 Gastro-esophageal reflux disease without esophagitis; F90.9 Attention-deficit hyperactivity disorder, unspecified type; O99.344 Other mental disorders complicating childbirth; O99.62 Diseases of the digestive system complicating childbirth
CPT/HCPCS: 85025; 86850; 86900; 86901

== ENCOUNTER → 2024-10-22 | Outpatient (CLI) | payer OTHER ==
[2024-10-22 14:50] VITALS: BP 105/66; PULSE 106; RESP 16; TEMP 99.1
--- NOTE | 2024-10-22 15:29 | P.SLEEP ---
History of Present Illness DATE: 10/22/2024 CONSULTATION/NEW PATIENT EVALUATION HISTORY OF PRESENT ILLNESS/SLEEP-WAKE EVALUATION: 29-year-old lady had been e valuated in the sleep center for narcolepsy. Patient had been diagnosed with possible narcolepsy in our institution in 2021. At that time multiple sleep latency test documented extremely short mean sleep latency 2.2 minutes. No sleep onset REM periods have been documented. SLEEP SCHEDULE: Usually sleep schedule from 7 PM to 7 AM basically 7 days a week. FALLING ASLEEP: No problems with falling asleep. DURING SLEEP: Patient wakes up from sleep 2 times. Positive history of mild snoring. Positive history of grinding teeth. No history of hypnogogical hallucinations, sleep paralysis, or cataplexy. DURING THE DAY/WAKE STATE: In the morning patient wake up tired, has difficulties to pay attention, has significant sleepiness during the day. [place]ushing sleepiness scale is 16. Patient may take nap in the middle of the day. 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 PAST SURGICAL HISTORY: Cranial surgery in 09/18/2024. MEDICATIONS: Please see below. SOCIAL HISTORY: Please see below. FAMILY HISTORY: Please see below. REVIEW OF SYSTEMS: Left-sided weakness, sleepiness. No fevers. No double vision. No recent chest pain. No shortness of breath. No abdominal pain. No bleeding episodes. No blood in urine. No seizure episodes. PHYSICAL EXAMINATION: GENERAL: A pleasant patient without any distress on wheelchair. VITAL SIGNS: Please see below, weight 210 pounds. HEENT: PERRLA, EOMI. Evaluation of oropharynx showed tongue protrudes midline, low position of soft palate Mallampati 3. NECK: Supple. No JVD. Thyroid is not palpable. 15.5 inches in circumference. LUNGS: Clear to percussion and to auscultation. Good air exchange. No wheezing or rhonchi. HEART: S1, S2 regular. No murmurs, gallops or rubs. ABDOMEN: Soft and nontender. Bowel sounds are present. No organomegaly appreciated. EXTREMITIES: No clubbing or cyanosis. PBX REPAIRER: Awake, alert, and oriented x3. Slight left-sided weakness. ASSESSMENT: 1. 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 No sleep onset REM was documented, but patient was on treatment with SSRIs. 2. 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 3. Status post cranial surgery in September 18, 2024. 4. Hyperlipidemia. 5 acid reflux. PLAN: 1. Sleep hygiene with regular sleep time for at least 7.5-8 hours. 2. No driving if patient feels any sleepiness. Patient is aware of civil and criminal liability for unsafe driving. Presently patient does not drive 3. Watching weight. 4. Because of recent hemorrhagic stroke patient will not be started on stimulants at the present time. 5. Follow-up visit in 6 months. Thank you very much for referring this patient for consultation. Sincerely, Joselito Leahy MD, PhD, FAASM. Diplomat of [place] [employer], Sleep Medicine Board by [employer] [facility] [place] cc: Elvira Laws MD Past Medical History Past Medical History: CVA/TIA Additional Past Medical History / Comment(s): narcolepsy, History of Any Multi-Drug Resistant Organisms: MRSA Date of last positivie culture/infection: 09/22/24 MDRO Source:: hospital Past Surgical History: Section Additional Past Surgical History / Comment(s): cranium surgery Past Anesthesia/Blood Transfusion Reactions: No Reported Reaction Past Psychological History: Anxiety, Depression Smoking Status: Never smoker Past Alcohol Use History: None Reported Past Drug Use History: None Reported - Past Family History Father Family Medical History: No Reported History Mother Family Medical History: No Reported History Medications and Allergies Home Medications Medication Instructions Recorded Confirmed Type Dextroamphetamine/Amphetamine 30 mg PO DAILY 02/19/21 02/19/21 History [Adderall Xr] Dextroamphetamine/Amphetamine 20 mg PO TID 02/19/21 10/22/24 History [Adderall] Sertraline [Zoloft] 100 mg PO DAILY 02/19/21 02/19/21 History Atorvastatin [Lipitor] 40 mg PO DAILY 10/22/24 10/22/24 History Famotidine 20 mg PO DAILY 10/22/24 10/22/24 History Mirtazapine 15 mg PO HS 10/22/24 10/22/24 History Allergies Allergy/AdvReac Type Severity Reaction Status Date / Time No Known Allergies Allergy Verified 02/19/21 17:40 Physical Exam Vitals: Vital Signs Temp Pulse Resp BP Pulse Ox 10/22/24 14:49 99.1 F 106 H 16 105/66 99 Intake and Output 10/22/24 10/22/24 10/22/24 06:59 14:59 22:59 Other: Weight 95.254 kg Sleep Note - Sleep Data ESS Total: 16 - Sleep Note Sleep Note: Temperature: 99.1 F Pulse Rate: 106 Respiratory Rate: 16 Blood Pressure: 105/66 SpO2: 99 Height: 5 ft 5 in Weight: 95.254 kg BMI: Neck Circumference: 15.5
== END ==
LOC: 3 N SLEEP 14:29
PROVIDERS: ATTEND Internal Medicine
DX: G47.419 Narcolepsy without cataplexy (principal); I62.9 Nontraumatic intracranial hemorrhage, unspecified; K21.9 Gastro-esophageal reflux disease without esophagitis; E78.5 Hyperlipidemia, unspecified; R53.1 Weakness; Z98.890 Other specified postprocedural states
CPT/HCPCS: 99211